=== PATIENT | male | born 1980 | race Caucasian/White ===

== ENCOUNTER 2018-10-28 14:27 | Outpatient (CLI) | payer MEDICAID ==
[~2018-10-28 14:27] MED LIST: CHLO25CA10 PO; METO-467 PO; PRED1TAB PO
== END 2018-10-28 23:59 | disposition home or self-care (01) ==
LOC: RAD 14:27
DX: R40.20 Unspecified coma (principal); F17.200 Nicotine dependence, unspecified, uncomplicated
CPT/HCPCS: 95819

== ENCOUNTER 2019-10-21 15:07 | Emergency (ER) | payer MEDICAID ==
[~2019-10-21] VITALS: Ht 175.3 cm; Wt 80.0 kg
[2019-10-21] MEDS ORDERED: LORazepam 2 mg/ml vial IV ONE (15:25)
[2019-10-21] MEDS ORDERED: normal saline 1000ML IV soln IVB ONE (15:25)
[2019-10-21 15:59] LABS: BASOPHILS # (AUTO) 0.1 X10'3 (0-0.2); BASOPHILS % (AUTO) 0.5 % (0-1); EOSINOPHILS # (AUTO) 0.1 X10'3 (0-0.9); EOSINOPHILS % (AUTO) 0.7 % (0-6); HEMATOCRIT 48.5 % (42.0-52.0); HEMOGLOBIN 16.7 g/dl (14.0-17.9); LYMPHOCYTES # (AUTO) 2.2 X10'3 (1.1-4.8); LYMPHOCYTES % (AUTO) 20.2 % (21-51); MEAN CORPUSCULAR HEMOGLOBIN 32.8 PG (27.0-31.0); MEAN CORPUSCULAR HGB CONC 34.5 g/dL (33.0-36.5); MEAN CORPUSCULAR VOLUME 95.1 FL (78-98); MONOCYTES # (AUTO) 0.9 X10'3 (0-0.9); MONOCYTES % (AUTO) 7.9 % (2-12); NEUTROPHILS # (AUTO) 7.7 X10'3 (1.8-7.7); NEUTROPHILS % (AUTO) 70.7 % (42-75); PLATELET COUNT 197 X10'3 (140-440); RED CELL DISTRIBUTION WIDTH 13.8 % (11.5-14.5); WHITE BLOOD COUNT 10.9 X10'3 (4.5-11.0)
[2019-10-21 16:06] LABS: PARTIAL THROMBOPLASTIN TIME 27 SECONDS (22-32)
[2019-10-21 16:07] LABS: ALANINE AMINOTRANSFERASE 61 U/L (12-78); ALBUMIN 3.7 G/DL (3.4-5.0); ALBUMIN/GLOBULIN RATIO 0.8 (1.1-1.5); ALKALINE PHOSPHATASE 99 IU/L (46-116); ANION GAP 12 (8-16); ASPARTATE AMINO TRANSFERASE 52 U/L (10-37); BILIRUBIN,TOTAL 0.6 MG/DL (0.1-1.0); BLOOD UREA NITROGEN 8 MG/DL (7-18); BUN/CREATININE RATIO 10.7 (5.4-32.0); CHLORIDE 106 MMOL/L (99-107); CREATININE 0.75 MG/DL (0.60-1.10); GLUCOSE 113 MG/DL (70-104); POTASSIUM 3.6 MMOL/L (3.5-5.1); SODIUM 142 MMOL/L (135-145); TOTAL CARBON DIOXIDE 24.3 MMOL/L (24-32); TOTAL PROTEIN 8.2 G/DL (6.4-8.2); eGFR > 90 ML/MIN
[2019-10-21 16:11] LABS: ETHANOL 0.177 GM/DL (0.0-0.010); TROPONIN I < 0.04 NG/ML (0.0-0.05)
[2019-10-21 16:31] LABS: COLOR,URINE YELLOW (Yellow); GLUCOSE, URINE NEGATIVE (Neg); KETONES,URINE NEGATIVE (Neg); LEUKOCYTE ESTERASE ,URINE NEGATIVE (Neg); NITRITES, URINE NEGATIVE (Neg); OCCULT BLOOD,URINE TRACE-LYSED (Neg); PH,URINE 5.5 (4.8-8.0); PROTEIN,URINE 30 mg/dl (Neg); UROBILINOGEN,URINE 0.2 E.U/dL (0.2-1.0)
[2019-10-21 16:33] LABS: URINE AMPHETAMINE SCREEN NEGATIVE (Neg); URINE BARBITUATE SCREEN NEGATIVE (Neg); URINE BENZODIAZEPINES SCREEN NEGATIVE (Neg); URINE CANNABINOID SCREEN NEGATIVE (Neg); URINE COCAINE SCREEN NEGATIVE (Neg); URINE METHADONE SCREEN NEGATIVE (Neg); URINE OPIATE SCREEN NEGATIVE (Neg); URINE PHENCYCLIDINE SCREEN NEGATIVE (Neg)
[2019-10-21 16:39] LABS: UA COLLECTION TYPE VOIDED
[2019-10-21 16:40] LABS: CLARITY,URINE CLEAR (Clear)
[2019-10-21 16:41] LABS: BACTERIA,URINE NONE SEEN /HPF (Neg); RBC,URINE NONE SEEN /HPF (0-2); SQUAMOUS EPITHELIAL CELL,UR FEW /LPF (FEW); WBC,URINE NONE SEEN /HPF (0-4)
[2019-10-21 17:56] VITALS: BP 127/79
== END 2019-10-21 18:05 | disposition home or self-care (01) ==
LOC: ER 15:07
DX: F10.129 Alcohol abuse with intoxication, unspecified (principal); I10 Essential (primary) hypertension; F12.90 Cannabis use, unspecified, uncomplicated; Z86.69 Personal history of other diseases of the nervous system and sense organs; Z88.0 Allergy status to penicillin; Z79.899 Other long term (current) drug therapy; Y90.0 Blood alcohol level of less than 20 mg/100 ml
CPT/HCPCS: 36415; 71045; 80053; 80305; 80320; 81001; 84484; 85025; 85610; 85730; 93005; 96374; 99285; J2060; J7030

== ENCOUNTER 2020-01-06 08:30 | Outpatient (CLI) | payer MEDICAID | END 2020-01-06 23:59 | disposition home or self-care (01) | LOC: RAD 08:30 | PROVIDERS: ATTEND Psychiatry & Neurology Neurology | DX: R94.01 Abnormal electroencephalogram [EEG] (principal); G40.802 Other epilepsy, not intractable, without status epilepticus; R09.89 Other specified symptoms and signs involving the circulatory and respiratory systems | CPT/HCPCS: 95816 ==

== ENCOUNTER 2022-04-25 10:05 | Emergency (ER) | payer MEDICAID ==
[~2022-04-25] VITALS: Ht 182.9 cm; Wt 90.9 kg
[2022-04-25 10:39] LABS: BASOPHILS # (AUTO) 0.1 X10'3 (0-0.2); BASOPHILS % (AUTO) 0.7 % (0-1); EOSINOPHILS # (AUTO) 0.1 X10'3 (0-0.9); EOSINOPHILS % (AUTO) 1.4 % (0-6); HEMATOCRIT 48.4 % (42.0-52.0); HEMOGLOBIN 16.6 g/dl (14.0-17.9); LYMPHOCYTES # (AUTO) 2.8 X10'3 (1.1-4.8); LYMPHOCYTES % (AUTO) 32.4 % (21-51); MEAN CORPUSCULAR HEMOGLOBIN 33.2 PG (27.0-31.0); MEAN CORPUSCULAR HGB CONC 34.3 g/dL (33.0-36.5); MEAN CORPUSCULAR VOLUME 96.7 FL (78-98); MEAN PLATELET VOLUME 10.6 FL (7.4-10.4); MONOCYTES # (AUTO) 0.9 X10'3 (0-0.9); MONOCYTES % (AUTO) 10.3 % (2-12); NEUTROPHILS # (AUTO) 4.7 X10'3 (1.8-7.7); NEUTROPHILS % (AUTO) 55.2 % (42-75); PLATELET COUNT 188 X10'3 (140-440); RED BLOOD COUNT 5.01 X10'6 (4.70-6.10); RED CELL DISTRIBUTION WIDTH 13.8 % (11.5-14.5); WHITE BLOOD COUNT 8.5 X10'3 (4.5-11.0)
[2022-04-25 11:03] LABS: ALANINE AMINOTRANSFERASE 47 U/L (12-78); ALBUMIN 3.7 G/DL (3.4-5.0); ALBUMIN/GLOBULIN RATIO 0.9 (1.1-1.5); ANION GAP 9 (8-16); ASPARTATE AMINO TRANSFERASE 36 U/L (10-37); BILIRUBIN,TOTAL 0.4 MG/DL (0.1-1.0); BLOOD UREA NITROGEN 11 MG/DL (7-18); CHLORIDE 104 MMOL/L (99-107); CREATININE 0.92 MG/DL (0.60-1.10); GLUCOSE 100 MG/DL (70-104); POTASSIUM 4.3 MMOL/L (3.5-5.1); SODIUM 140 MMOL/L (135-145); TOTAL CARBON DIOXIDE 26.7 MMOL/L (24-32); eGFR 89 ML/MIN
[2022-04-25 11:04] LABS: ALKALINE PHOSPHATASE 93 IU/L (46-116)
[2022-04-25 11:16] LABS: LARGE PLATELETS FEW; PLATELET ESTIMATE NORMAL
[2022-04-25] MEDS ORDERED: pantoprazole 40 MG vial IV ONE (15:50)
[2022-04-25] MEDS ORDERED: aspirin 81mg tab.chew PO ONE (15:50)
[2022-04-25] MEDS ORDERED: nitroGLYCERIN 0.4mg/hour patch TD ONE (15:50)
[2022-04-25] MEDS ORDERED: pantoprazole 40MG/NS 100ML BAG 100 ML IV ONE (15:55)
[2022-04-25 16:06] LABS: LIPASE 93 U/L (73-393)
[2022-04-25] MEDS ORDERED: LOSA1TAB15 PO (17:06)
[2022-04-25 17:22] VITALS: BP 165/104
== END 2022-04-25 17:27 | disposition home or self-care (01) ==
LOC: ER 10:05
DX: I10 Essential (primary) hypertension (principal); R07.9 Chest pain, unspecified; F17.200 Nicotine dependence, unspecified, uncomplicated; F12.10 Cannabis abuse, uncomplicated; Z88.0 Allergy status to penicillin; Z79.899 Other long term (current) drug therapy
CPT/HCPCS: 36415; 71045; 80053; 83690; 83880; 84484; 85008; 85025; 93005; 96374; 99285; C9113

== ENCOUNTER 2025-04-04 11:46 | Inpatient (IN) | payer MEDICAID ==
[2025-04-04] VITALS (10 sets, daily range): BP systolic 121–182; BP diastolic 76–120; PULSE 60–94; RESP 14–18; TEMP 97.3–98.8; O2SAT 98–99
[~2025-04-04] VITALS: Ht 182.9 cm; Wt 90.1 kg
[~2025-04-04 11:46] MED LIST changes: +LOSA-424 PO
--- NOTE | 2025-04-04 11:53 | ELECTROCARDIOGRAPH REPORT ---
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 Rashad Nicole Measurements Intervals [place] Rate: 86 P: 39 GA: 157 QRS: -16 QRSD: 90 T: 32 QT: 364 QTc: 436 Interpretive Statements Sinus rhythm Probable left atrial enlargement Borderline left axis deviation Lateral infarct, acute Electronically Signed On 04-04-2025 12:04:[address] Rashad Nicole Please click the below link to view image of tracing.
--- NOTE | 2025-04-04 11:57 | Physician Documentation ---
History of Present Illness ~ Stated Complaint: CP Time Seen by MD: 12:08 OK to notify your PCP?: Yes Primary Medical Doctor: [facility] Source: patient, RN/, RN notes reviewed, old records Mode of Arrival: POV Exam Limitations: no limitations HPI 45-year-old male presents with left sided chest pain which is radiating down his arm which started yesterday morning. Now the pain is localized in the sternum in his nontender to palpation. He did take 4 baby aspirin this morning. Any treated with ibuprofen yesterday with little relief. He does have a history of high blood pressure but has not had any cardiac events. Patient was brought into bed 12 I was immediately at the patient's bedside. Kit ojeda has a history of hypertension. He also has a history of questionable fainting four years ago questionable seizure activity was going to have a neuro workup and CAT scan but never followed up. He denies any headache or vision changes. Yesterday he was feeling weak and tired did not go to work but was having chest pain so he was resting. Today however he was going to move a refrigerator when he started to get up at 11:20 a.m. started having crushing chest pain with diaphoresis dizziness shortness of breath. who is a cardiac patient gave him over four aspirins. The patient then immediately comes to the ER where he is pale diaphoretic short of breath with 10/10 chest pain. Patient has no other complaints at this time. He appears ill Medication Reconciliation Allergies: Coded Allergies: Penicillins (Verified Allergy, Unknown, 04/04/25) Scheduled Chlordiazepoxide Hcl (Librium), 25 MG PO BID Losartan/Hydrochlorothiazide (Hyzaar 100-25 Tablet), 1 TAB PO DAILY Metoprolol Tartrate (Lopressor), 1 TAB PO Q12H Prednisone* (Prednisone*), 1 TAB PO DAILY Past Medical History Past Medical History: Seizures, Hypertension Past Surgical History: noncontributory Smoking Status: Current every day smoker Alcohol Use: Abuse Drug Use: marijuana Lives with: Spouse Lives In: Home Review of Systems All Other Systems at this time: Reviewed and Negative Physical Exam Vital Signs: RN Vital Signs have been reviewed: Yes Pulse Oximetry Reflects: adequate oxygenation Physical Exam General: Alert, no distress. HEENT: No injection, moist mucous membranes. Neck: Full range of motion. Respiratory: No respiratory distress, equal chest rise and fall. Chest: No accessory muscle use. Chest wall is nontender to palpation. Cardiovascular: Regular rate and rhythm. Gastrointestinal: Nondistended. Extremities: Normal range of motion, no deformity. Neurologic: Oriented x4. Psychiatric: Normal mood and affect. Skin: Normal color, warm and dry. General: The patient is well developed, well nourished, ill appearing and is in moderate acute distress. Skin: [place], warm and dry with no rashes. Diaphoretic pale-appearing HEENT: Head was normocephalic and atraumatic. Eyes - pupils equal, round, reactive to light and accommodation. Extraocular movements were intact. Conjunctivae were nonicteric. The mouth and oropharynx were clear with moist mucous membranes. There were no pharyngeal exudates or erythema. Neck: Supple and nontender. There was no jugular venous distention, lymphaden opathy, thyromegaly or masses. Chest: Clear to auscultation bilaterally without wheezes, rales or rhonchi. No accessory muscle use. No dullness to percussion. Heart: Rate regular and rhythmic. S1, S2. No murmurs. Palpation of the chest wall was normal. No rubs or thrills. Abdomen: Soft, nontender and nondistended. Positive bowel sounds. No guarding or rebound. No hepatosplenomegaly or palpable masses. Extremities: No cyanosis, clubbing or edema. The patient moves all extremities. Pulses were equal and symmetric. Neurologic: Motor sensory grossly intact. He reports V2 V3 facial numbness as well as left upper extremity numbness. Psychologic: The patient was oriented to person, place and time. The patient demonstrated appropriate judgement and insight. Progress Results/Orders Reviewed/noted all lab results: Yes Results/Orders Orders - BARRERA DIEZ MD Chest,Single View (04/04/25 11:51) Monitor (04/04/25 11:51) Saline Lock (04/04/25 11:51) Oxygen (04/04/25 11:51) Cbc/Diff (04/04/25 11:51) Electrocardiogram (04/04/25 11:51) Hs Troponin I W Calculations (04/04/25 13:51) Hs Troponin I W Calculations (04/04/25 14:51) Pt Inr (04/04/25 12:09) PTT (04/04/25 12:09) Nitroglycerin Sublingual Tab (Nitrostat (04/04/25 12:15) Normal Saline 1000ml (0.9% Sodium Chlori (04/04/25 12:15) Electrocardiogram (04/04/25 12:15) Heparin 25,000 Unit/250ml Bag (Heparin 2 (04/04/25 12:20) Heparin 10,000 Unit/Ml 1ml (Heparin 10,0 (04/04/25 12:30) Electrocardiogram (04/04/25 12:45) Hospitalist Icu Consultation (04/04/25 12:46) Fill Out Med Reconciliation (04/04/25 12:46) Completed Orders - BARRERA DIEZ MD Chest,Single View (04/04/25 11:51) BMP (04/04/25 11:51) PBNP (04/04/25 11:51) Electrocardiogram (04/04/25 11:51) Hs Troponin I W Calculations (04/04/25 11:51) Nitroglycerin 0.4mg/Hr Patch (Nitro-Dur (04/04/25 12:15) Nitroglycerin Sublingual Tab (Nitrostat (04/04/25 12:15) Electrocardiogram (04/04/25 12:15) Liver Panel (04/04/25 12:05) MG (04/04/25 12:05) Heparin 10,000 Unit/Ml 1ml (Heparin 10,0 (04/04/25 12:30) Message To Nursing (04/04/25 12:35) Morphine 4mg/Ml Inj. (Morphine Inj.) (04/04/25 12:35) Morphine 2mg/Ml Inj. (Morphine Inj.) (04/04/25 12:36) Ondansetron Inj. (Zofran 4mg/2ml Vial) (04/04/25 12:36) Ondansetron Inj. (Zofran 4mg/2ml Vial) (04/04/25 12:45) Lidocaine 1%/Pf 2ml (Xylocaine-Mpf 1% Vi (04/04/25 12:44) Verapamil Inj (Verapamil Inj) (04/04/25 12:44) Midazolam 1 Mg/Ml 2ml Inj. (Versed 1 Mg/ (04/04/25 12:45) Fentanyl/Pf (Fentanyl 0.05 Mg/Ml Syringe (04/04/25 12:45) Heparin 1,000unit/Ml 10ml Vial (Heparin (04/04/25 12:45) Iohexol 350mg/Ml 100ml (Omnipaque 350mg/ (04/04/25 12:45) Heparin 1,000 Units/Ns 500ml (Heparin 1, (04/04/25 12:45) Nitroglycerin 500mcg/5ml D5w (Nitroglyce (04/04/25 12:45) Morphine 4mg/Ml Inj. (Morphine Inj.) (04/04/25 12:51) Medications Received in ER Medications (Trade) Dose Ordered Sig/Naresh Route PRN Reason Start Time Stop Time Status Last Admin Dose Admin (Nitrostat SL tablet) 0.4 mg Q5M PRN SL chest pain 04/04/25 12:15 04/04/25 12:37 0.4 MG (Nitro-Dur 0.4mg/ hour Patch) 1 patch ONCE ONCE TD 04/04/25 12:15 04/04/25 12:16 DC 04/04/25 12:19 1 PATCH Sodium Chloride 1,000 ml @ 200 mls/hr Q5H ONCE IV 04/04/25 12:15 04/04/25 17:14 04/04/25 12:34 200 MLS/HR Heparin Sodium/ Dextrose 250 ml @ 10 mls/hr Q25H PRN IV TO MAINTAIN PTT WITHIN RANGE 04/04/25 12:20 04/04/25 12:40 10 MLS/HR (heparin 10,000 unit/ml 1ml inj) 4,000 units ONCE ONCE IV 04/04/25 12:30 04/04/25 12:31 DC 04/04/25 12:33 4,000 UNITS (morphine inj.) 4 mg ONCE ONCE IV 04/04/25 12:35 04/04/25 12:36 DC 04/04/25 12:38 4 MG (Zofran 4mg/2ml vial) 4 mg ONCE ONCE IV 04/04/25 12:45 04/04/25 12:46 DC 04/04/25 12:53 4 MG Vital Signs 04/04/25 04/04/25 04/04/25 04/04/25 11:53 12:01 12:15 12:38 Temp 97.9 Pulse 85 67 Resp 16 17 20 18 B/P (MAP) 228/148 232/139 (170) Pulse Ox 97 97 O2 Flow Rate 0 0 04/04/25 04/04/25 04/04/25 04/04/25 12:45 12:47 12:48 12:53 Pulse 68 Resp 20 18 B/P (MAP) 157/103 (121) 150/105 (120) 153/103 (120) Pulse Ox 68 O2 Flow Rate 0 Laboratory Tests Test 04/04/25 12:05 04/04/25 12:40 White Blood Count 12.2 H Red Blood Count 5.33 Hemoglobin 17.9 Hematocrit 51.9 Mean Corpuscular Volume 97.5 Mean Corpuscular Hemoglobin 33.6 H Mean Corpuscular Hemoglobin Concent 34.5 Red Cell Distribution Width 14.4 Platelet Count 202 Mean Platelet Volume 11.2 H Neutrophils (%) (Auto) 62.5 Lymphocytes (%) (Auto) 23.9 Monocytes (%) (Auto) 12.6 H Eosinophils (%) (Auto) 0.6 Basophils (%) (Auto) 0.4 Neutrophils # (Auto) 7.6 Lymphocytes # (Auto) 2.9 Monocytes # (Auto) 1.5 H Eosinophils # (Auto) 0.1 Basophils # (Auto) 0.0 CBC Comment Sodium Level 139 Potassium Level 4.0 Chloride Level 101 Carbon Dioxide Level 29.6 Anion Gap 8 Blood Urea Nitrogen 9 Creatinine 0.86 Estimated GFR/1.73 m2 > 90 BUN/Creatinine Ratio 10.5 Glucose Level 114 H Calcium Level 9.4 Magnesium Level 1.9 Total Bilirubin 1.2 H Direct Bilirubin 0.2 Aspartate Amino Transf (AST/SGOT) 84 H Alanine Aminotransferase (ALT/SGPT) 81 H Alkaline Phosphatase 109 Troponin I High Sensitivity 4202 *H Pro-B-Type Natriuretic Peptide 308 H Total Protein 8.5 H Albumin 4.0 Globulin 4.5 H Albumin/Globulin Ratio 0.9 L Chemistry Comments Coagulation Comments Re-Evaluation Re-Evaluation : Re-Evaluation: Unchanged Progress This patient upon arrival look ill. He had clear ischemic changes on his EKG consistent with acute myocardial infarction. Patient already received aspirin. He was given sublingual and nitro paste. Repeat EKGs were obtained and the 2nd one showed worsening ischemic changes consistent with an ST-elevation myocardial infarction despite saying his pain improved he was now diaphoretic and looking even more ill. Cardiology was consulted. Heparin bolus and heparin drip were both started. Patient received morphine 4 mg also started receiving fluids. Later his oxygenation dropped to 92% and was started on oxygen he was pretreated with fluids for cardiac catheterization. Patient's blood pressure was improving and he was no longer with a hypertensive emergency and an organ disease specifically myocardial infarction. His initial laboratory work CBC shows no anemia with slight elevation of WBC at 12.2 most likely a stress reaction without a left shift. Coagulation is pending and obtained. Chemistries were within normal limits. Magnesium 1.9 potassium 4.0 creatinine is 0.086. LFTs showed a slight bump with AST at 84 ALT at 81. Patient does have a history of drinking although he says only on occasion. First troponin came back at 4202. Patient was given a heparin bolus heparin drip. I discussed the case with Cardiology. Morphine was given. 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 Chest x-ray also showed no widened mediastinum or dissection. Initial orders were written for possible neuro evaluation and workup as well however it was unlikely and the risk of cardiac arrest and a CAT scan working up a diagnosis done four years ago was not worth further evaluation there was no carotid bruits unlikely to have a carotid dissection causing both neuro symptoms as well as cardiac symptoms. Patient is presenting blood pressure was 228/148 second blood pressure was 232/139 with a map of 170. Continuous bus monitor interpretation shows normal sinus rhythm heart rate 70s, no ectopy, normal, my interpretation. Pulse oximetry monitor interpretation shows normal oxygenation 97% room air, normal, my interpretation. 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 Barrera Diez Measurements Intervals [place] Rate: 74 P: -2 OR: 147 QRS: -16 QRSD: 93 T: 37 QT: 388 QTc: 431 Interpretive Statements STEMI Borderline left axis deviation Lateral infarct, acute Borderline ST elevation, anterior leads Baseline wander in lead(s) V3,V4,V5,V6 Electronically Signed On 04-04-2025 12:44:[address] Barrera Diez Please click the below link to view image of tracing. 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 Barrera Diez Measurements Intervals [place] Rate: 86 P: 39 OR: 157 QRS: -16 QRSD: 90 T: 32 QT: 364 QTc: 436 Interpretive Statements Sinus rhythm Probable left atrial enlargement Borderline left axis deviation Lateral infarct, acute Electronically Signed On 04-04-2025 12:04:[address] Barrera Diez Please click the below link to view image of tracing. Chest X-Ray : Interpreted By: self Views: 1 VIEW Lungs: normal Mediastinum: normal Ribs/Bones: normal Abdomen: normal Impression: no acute disease Heart Score: Heart Score Response (Comments) Value History Highly Suspicious [address]-Deviation 2 Age 45-64 1 Risk Factors 1 or 2 risk factors 1 Troponin >3 x's Normal limit 2 Total 8 Medical Decision Making Differential Dx:Considerations: Include: angina, aortic dissection, chest wall pain, cholelithiasis, CHF, costochondritis, esophageal reflux/spasm, gastritis, herpes zoster, myocardial infarction, pericarditis, pleuritis, pancreatitis, pneumonia, pneumothorax, pulmonary embolus, other Departure Admitted to Inpatient Unit: to hospitalist, to plastic duplicator Admission Level of Care: Critcal Care Impression: Primary Impression: STEMI (ST elevation myocardial infarction) Qualified Codes: I21.02 - ST elevation (STEMI) myocardial infarction involving left anterior descending coronary artery Additional Impression: Hypertension Qualified Codes: I10 - Essential (primary) hypertension Condition: Critical Referrals: NO PRIMARY CARE PROVIDER (PCP) Education Educated: Patient Educated regarding: diagnosis Critical Care Note Total Time (mins): 45 Critical Care Note The very real possibility of a deterioration of this patient's condition required the highest level of my preparedness for sudden, emergent intervention. I provided critical care services, which included medication orders, frequent reevaluations of the patient's condition and response to treatment, ordering and reviewing test results, and discussing the case with various consultants. Excludes time spent performing separately billable procedures. The critical care time associated with the care of the patient was. 45 minutes Additional Comment Medical Screen Exam This patient recieved a medical screening examination. After reviewing the individual's medical complaints with presenting symptoms and performing an appropriate physical examination, it was determined that no immediate life- threatening emergency medical condition is present. This individual is also not a women having contractions. Signature Scribe Signature: . Attestation: The note accurately reflects work and decisions made by me.Barrera Diez MD 04/04/25 12:57 MARY BETH HUERTAP Apr 04, 2025 11:57 BARRERA DIEZ MD Apr 04, 2025 12:55
[2025-04-04] MEDS ORDERED: heparin 10,000 units/1 ML INJ IV ONE (12:20)
[2025-04-04 12:22] LABS: MEAN PLATELET VOLUME 11.2 FL (7.4-10.4); RED CELL DISTRIBUTION WIDTH 14.4 % (11.5-14.5)
--- NOTE | 2025-04-04 12:26 | ELECTROCARDIOGRAPH REPORT ---
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 Rashad Nicole Measurements Intervals [place] Rate: 74 P: -2 [place]: 147 QRS: -16 QRSD: 93 T: 37 QT: 388 QTc: 431 Interpretive Statements STEMI Borderline left axis deviation Lateral infarct, acute Borderline ST elevation, anterior leads Baseline wander in lead(s) V3,V4,V5,V6 Electronically Signed On 04-04-2025 12:44:[address] Rashad Nicole Please click the below link to view image of tracing.
[2025-04-04] MEDS ORDERED: heparin 10,000 units/1 ML INJ IV PRN (12:30)
[2025-04-04 12:32] LABS: CREATININE 0.86 MG/DL (0.60-1.10); TOTAL CARBON DIOXIDE 29.6 MMOL/L (24-32); eCRCL 117 ML/MIN; eGFR > 90 ML/MIN
[2025-04-04] MEDS: heparin 10,000 units/1 ML INJ IV ONE (12:33)
[2025-04-04] MEDS: normal saline 1000ml 1,000 ML IV ONE (12:34)
[2025-04-04] MEDS: MESSAGE TO NURSING IV ONE (12:35)
[2025-04-04 12:38] LABS: PRO BRAIN NATRIURETIC PEPTIDE 308 PG/ML (0-125)
[2025-04-04] MEDS: morphine 4 MG/ML inj SYRINge IV ONE (12:38)
[2025-04-04] MEDS: heparin 25,000 UNIT/250ml bag 250 ML IV PRN (12:40)
[2025-04-04] MEDS ORDERED: verapamil 2.5 mg/ml inj IV ONE (12:44)
[2025-04-04] MEDS ORDERED: LIDOcaine 1% (10mg/ml) 2ml vial ONE (12:44)
[2025-04-04] MEDS ORDERED: heparin 1,000unit/ml 10ml vial 10 ML ONE (12:45)
[2025-04-04] MEDS ORDERED: midazolam 1 mg/ML 2ml injection ONE (12:45)
[2025-04-04] MEDS ORDERED: nitroGLYCERIN 500mcg/5mL D5W 5 ML IV ONE (12:45)
[2025-04-04] MEDS ORDERED: fentaNYL/PF 50MCG/1 ML 2ML syringe ONE (12:45)
[2025-04-04] MEDS: ondansetron/PF 4mg/2ml inj IV ONE (12:53)
[2025-04-04] MEDS: ondansetron/PF 4mg/2ml inj ONE (12:53)
[2025-04-04] MEDS: morphine 4 MG/ML inj SYRINge ONE (12:54)
[2025-04-04 13:02] LABS: APTT 25 SECONDS (22-32); INR 1.0 INR
--- NOTE | 2025-04-04 13:05 | RADIOLOGY REPORT ---
DI CHEST,SINGLE VIEW, HISTORY: CP COMPARISON: CHEST,SINGLE VIEW on DOS: 04/25/22 CHEST,SINGLE VIEW on DOS: 04/25/22 TECHNICAL DATA: 1 view of the chest was obtained. FINDINGS: Lines and tubes: None Cardiomediastinal silhouette: normal Pulmonary vasculature: normal Lung expansion: normal Lung airspace: normal Lung interstitium: normal Pleura: normal Pneumothorax: no Bones: Unremarkable Other: no IMPRESSION: No acute intrathoracic abnormality.
--- NOTE | 2025-04-04 13:37 | CARDIAC CATH REPORT ---
Cardiac Cath Report Providers to CC CC: ROSHAN RAPP MD Procedure Comments: 1. Left Heart Catheterization 2. Selective Coronary Angiography 3. Percutaneous Coronary Intervention of the First Diagonal Artery x 1 4. Right Radial Artery Access Brief History/Indications: 45yo man with HTN, HLD, Tobacco use, EtOH abuse admitted with CP x 1 day, found to have lateral STEMI Techniques: After informed consent was obtained, the patient was brought to the cardiac catheterization laboratory and prepped and draped in usual sterile fashion for left heart catheterization and other procedures mentioned above. The right wrist was anesthetized with 1% Lidocaine and the right radial artery accessed via the Seldinger technique after which a 6Fr sheath was placed. Through this a JR4 was used to engage the left ventricle, the right coronary artery, and an XB C4 guide to engage the left coronary artery. See below for interventional procedure details. At the conclusion of the case the sheath was removed and hemostasis obtained with a VascBand. Findings Findings: HEMODYNAMICS: LV: 156/7 mmHg LVEDP: 16 mmHg Ao: 156/89, MAP 116 mmHg CORONARY ARTERIES: Rt Dominant LMCA: Luminal Irregularities LAD: Luminal Irregularities D1: 100% occluded after the ostium D2: Luminal Irregularities LCx: Luminal Irregularities OM1: Luminal Irregularities RCA: Luminal Irregularities PDA: Luminal Irregularities PL: Luminal Irregularities PERCUTANEOUS CORONARY INTERVENTION of the D1: An XBC4 guide was used to engage the left coronary artery. The Diag lesion was crossed with a Choice PT wire. Pre-dilatation was performed with a 2.0x12mm balloon. Repeat angiography revealed adequate pre-treatment of the lesion without evidence of dissection. Subsequently, a 2.5x18mm Harrah Arminto KORIN was deployed across the lesion. The lesion was then post-dilated with a 3.0x12mm NC balloon. Repeat angiography revealed adequate stent expansion without evidence of dissection. Results Results: 1. STEMI involving the proximal D1 branch 2. PCI of the D1 with 2.5x15mm Matias KORIN 3. RRA Access, closed with VascBand RECOMMENDATIONS: 1. Cont ASA 81mg QD indefinitely 2. Cont Brilinta 90mg BID x 12 months 3. Recommend uptitration of other max-tolerated GDMT LOKI RAPP MD Apr 04, 2025 13:37
[2025-04-04 13:53] LABS: PLATELET ESTIMATE NORMAL
[2025-04-04 13:54] LABS: LARGE PLATELETS MODERATE
--- NOTE | 2025-04-04 14:59 | ELECTROCARDIOGRAPH REPORT ---
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 Rashad Nicole Measurements Intervals [place] Rate: 66 P: -18 [place]: 153 QRS: -31 QRSD: 85 T: 7 QT: 406 QTc: 426 Interpretive Statements Sinus rhythm Consider left atrial enlargement Left axis deviation Lateral infarct, acute Electronically Signed On 04-06-2025 12:42:[address] Rashad Nicole Please click the below link to view image of tracing.
[2025-04-04] MEDS ORDERED: AMLO-708 PO (15:27)
[2025-04-04] MEDS ORDERED: ATOR10TA70 PO (15:27)
[2025-04-04] MEDS: hydrALAZINE 20mg/ml inj. IV STA (18:30)
[2025-04-05] VITALS (8 sets, daily range): BP systolic 103–144; BP diastolic 62–84; PULSE 56–83; RESP 14–22; TEMP 97.2–98.4; O2SAT 62–99
--- NOTE | 2025-04-05 07:35 | HISTORY AND PHYSICAL ---
History & Physical - Short Providers to CC CC: ROSHAN RAPP MD ~ History of Present Illness Chief Complain & History STEMI 45yo man with HTN, HLD, Tobacco abuse admitted with CP x 1 day, found to have lateral STEMI. Allergies: Coded Allergies: Penicillins (Verified Allergy, Unknown, 04/04/25) Home Medications Home Medications Active Hyzaar 100-25 Tablet (Losartan/Hydrochlorothiazide) 1 Each Tablet 1 Tab PO DAILY 30 Days Lopressor (Metoprolol Tartrate) 50 Mg Tablet 1 Tab PO Q12H 30 Days Reported Amlodipine Besylate 10 Mg Tablet 1 Tab PO DAILY Atorvastatin Calcium 10 Mg Tablet 1 Tab PO DAILY Past Medical History Past Medical History HTN HLD Tobacco use Past Surgical History Past Surgical History Denies Family History Patient History: Cardiac arrest FATHER ROS ROS 14point ROS neg except above Exam Last recorded Lab results: 04/04/25 1205 04/04/25 1205 Vitals: Vital Signs Date Time Temp Pulse Resp B/P (MAP) Pulse Ox O2 Delivery O2 Flow Rate FiO2 04/05/25 06:00 97.7 59 14 103/62 (76) 99 Room Air 04/04/25 18:00 0.0 Other: GENERAL: Awake, alert, ++Diaphoretic CV: Reg rhythm, normal rate. No murmurs LUNGS: CTAB GI: +BS, soft, non-tender/distended. EXT: 2+ radial pulses, no edema PSYCH: cooperative Diagnostic Data Diagnostic Data: Laboratory Tests Test 04/04/25 12:40 04/04/25 13:14 Prothrombin Time 10.7 SECONDS (9.0-12.0) INR International Normalized Ratio 1.0 INR Activated Partial Thromboplast Time 25 SECONDS (22-32) Coagulation Comments Activated Clotting Time 239 SEC (101-148) H Counseling Services Smoking & Tobacco Cessation: 3-10 Minutes Advance Care Planning Advanced Care plannin - 30 Minutes Problem\Assessment\Plan Problems: (1) STEMI (ST elevation myocardial infarction) Status: Acute Assessment & Plan: STEMI involving the proximal D1 branch s/p PCI of the D1 with 2.5x15mm Matias KORIN --Cont ASA 81mg QD indefinitely --Cont Brilinta 90mg BID x 12 months --Cont Atorva 80mg QHS --Cont Metop 25mg BID --Echo to evaluate LVEF (2) Hypertension Status: Acute Assessment & Plan: Improved. --BBx as above --Cont Amlodipine 10mg QD Additional Plan DOS for HnP: 04/04/2025 Problem Qualifiers (1) STEMI (ST elevation myocardial infarction): Involved coronary artery: LAD coronary artery Qualified Codes: I21.02 - ST elevation (STEMI) myocardial infarction involving left anterior descending coronary artery (2) Hypertension: Hypertension type: unspecified Qualified Codes: I10 - Essential (primary) hypertension LOKI RAPP MD Apr 05, 2025 07:35
--- NOTE | 2025-04-05 07:37 | PROGRESS NOTE ---
Progress Note Cardiology Providers to CC CC: ROSHAN RAPP MD ~ Subjective Subjective 45yo man with HTN, HLD, Tobacco use, CAD(s/p PCI Dx) admitted with lateral STEMI s/p PCI D1. In the interim, reports feeling better overall. States CP resolved. Denies any SOB, bleeding. Objective Result Diagram: 04/04/25 1205 04/04/25 1205 Objective GENERAL:Awake, alert, NAD CV: Reg rhythm, normal rate. No murmurs LUNGS: CTAB GI: +BS, soft, non-tender/distended EXT: 2+ radial pulses, no edema PSYCH: cooperative Coagulation Studies Laboratory Tests Test 04/04/25 12:40 04/04/25 13:14 Prothrombin Time 10.7 SECONDS (9.0-12.0) INR International Normalized Ratio 1.0 INR Activated Partial Thromboplast Time 25 SECONDS (22-32) Coagulation Comments Activated Clotting Time 239 SEC (101-148) H Problem\Assessment\Plan Problems/Diagnosis: (1) STEMI (ST elevation myocardial infarction) Assessment & Plan: STEMI involving the proximal D1 branch s/p PCI of the D1 with 2.5x15mm [place] KORIN --Cont ASA 81mg QD indefinitely --Cont Brilinta 90mg BID x 12 months --Cont Atorva 80mg QHS --Cont Metop 25mg BID --Echo to evaluate LVEF --Check lipids, Lp(a) (2) Hypertension Assessment & Plan: Improved. --BBx as above --Cont Amlodipine 10mg QD Problem Qualifiers (1) STEMI (ST elevation myocardial infarction): Qualified Codes: I21.02 - ST elevation (STEMI) myocardial infarction involving left anterior descending coronary artery (2) Hypertension: Qualified Codes: I10 - Essential (primary) hypertension LOKI RAPP MD Apr 05, 2025 07:37
[2025-04-05] MEDS: aspirin 81mg, enteric-coated 1 TAB TABLET.DR PO SCH (07:56)
[2025-04-05 07:59] LABS: MEAN PLATELET VOLUME 10.9 FL (7.4-10.4); RED CELL DISTRIBUTION WIDTH 14.1 % (11.5-14.5)
[2025-04-05 08:13] LABS: CHOL/HDL RATIO 4.5 (0.00-4.99); CREATININE 0.80 MG/DL (0.60-1.10); LDL CHOLESTEROL 114 MG/DL (50-100); TOTAL CARBON DIOXIDE 25.1 MMOL/L (24-32); eCRCL 125 ML/MIN; eGFR > 90 ML/MIN
--- NOTE | 2025-04-05 18:40 | CARDIOLOGY REPORT ---
APPROVED REPORT EXAM: Comprehensive 2D, Doppler, and color-flow Echocardiogram. Patient Location: 30[address] Blood Pressure: 119/78 mmHg Heart Rate: 58 bpm Rhythm: SINUS Indications STEMI HYPERTENSION S/P STENT X1 Refractory Mixer: Cesario Sprague MD Previous echo: none 2D Dimensions RVDd 3.6 cm LA Diam5.5 cm IVSd 1.2 (0.7-1.1cm) LVDd 4.5 cm PWd 1.2 (0.7-1.1cm) IVSs 1.5 (0.8-1.2cm) LVDs 2.8 (2.5-4.0cm) PWs 1.8 (0.8-1.2cm) LVOT Diameter 2.29 (1.8-2.4cm) LVEF(%) 67.8 (>50%) Ao Asc Diam.3.12 cmFS (%) 37.6 % SV 63.2 ml CO 3.8 L/min M-Mode Dimensions Left Atrium(MM) 3.54 (2.5-4.0cm) Aortic Root 3.09 (2.2-3.7cm) Aortic Cusp Exc 2.10 (1.5-2.0cm) MV EPSS 0.5 (<0.5cm) Biplane 2D LA Volumes LA ESV Index 25.38 mL/m2 Aortic Valve AoV Peak Ramirez. 166.7 cm/s AoV VTI 33.7 cm AO Peak GR. 11.1 mmHg AO Mean GR. 6 mmHg LVOT VTI 26.58 cm LVOT Peak Ramirez. 125.6 cm/s NNAMDI(VTI)/BSA 3.26 cm2/m2 NNAMDI (VTI) 3.26 cm2 Mitral Valve MV E Velocity 74.8 cm/s MV Peak Gr. 2 mmHg MV DECEL TIME 236 ms MV A Velocity 69.8 cm/s MV PHT 68 ms E/A Ratio 1.1 MVA (PHT) 3.24 cm2 MV VMax77.9 cm/s TDI Medial E' P. V 8.33 cm/s E/Medial E' 9.0 Pulmonary Vein S1 Velocity 54.6 cm/s D2 Velocity 37.4 cm/s PVa Jcaldwxg69.7 cm/s PVa [id number] msec LEFT VENTRICLE Normal LV size and function. Mild concentric hypertrophy. Basal inferior wall appears hypokinetic to akinetic. LVEF is 65-70%. RIGHT VENTRICLE RV is mildly dilated in size with normal function. ATRIA LA size is normal. AORTIC VALVE Trileaflet AV appears normal without sclerosis or stenosis. No insufficiency. MITRAL VALVE Mild MV annular calcification without stenosis. Trace regurgitation. TRICUSPID VALVE TV appears structurally normal with trace regurgitation. PULMONIC VALVE Normal PV without stenosis, physiologic insufficiency. GREAT VESSELS Aortic root is normal in size. Ascending aorta is normal in size. PERICARDIUM Normal pericardium. No effusion. Other Information Study Quality: Adequate Conclusion Normal LV size and function. Mild concentric hypertrophy. Basal inferior wall appears hypokinetic to akinetic. LVEF is 65-70%. RV is mildly dilated in size with normal function. LA size is normal. Trileaflet AV appears normal without sclerosis or stenosis. No insufficiency. Mild MV annular calcification without stenosis. Trace regurgitation. TV appears structurally normal with trace regurgitation. Normal pericardium. No effusion.
[2025-04-06 02:00] VITALS: BP 124/70; PULSE 54; RESP 15; TEMP 97.8; O2SAT 98
[2025-04-06 06:00] VITALS: BP 121/70; PULSE 49; RESP 18; TEMP 97.8; O2SAT 100
[2025-04-06 06:29] LABS: MEAN PLATELET VOLUME 11.1 FL (7.4-10.4); RED CELL DISTRIBUTION WIDTH 14.2 % (11.5-14.5)
[2025-04-06 06:58] LABS: CREATININE 0.85 MG/DL (0.60-1.10); TOTAL CARBON DIOXIDE 23.0 MMOL/L (24-32); eCRCL 118 ML/MIN; eGFR > 90 ML/MIN
[2025-04-06 08:00] VITALS: BP 121/70; PULSE 69; RESP 14; RESP 18; O2SAT 99
[2025-04-06 11:00] VITALS: BP 133/84; PULSE 57; RESP 22; TEMP 98.2; O2SAT 100
[2025-04-06] MEDS ORDERED: TICA90TA PO (17:18)
[2025-04-06] MEDS ORDERED: ASPI-1071 PO (17:18)
[2025-04-06] MEDS ORDERED: ATOR20TA66 PO (17:18)
--- NOTE | 2025-04-06 17:28 | DISCHARGE SUMMARY ---
Discharge Summary Providers to CC CC: ROSHAN RAPP MD ~ Discharge Summary Admission Diagnosis: STEMI Hospital Course DATE OF ADMISSION: 04/04/2025 DATE OF DISCHARGE: 04/06/2025 Discharge Diagnosis\Comment: ST Elevation Myocardial Infarction Operations\Procedures: 1. Left Heart Catheterization 2. Selective Coronary Angiography 3. Percutaneous Coronary Intervention of the First Diagonal Artery x 1 4. Right Radial Artery Access Consultants: None Complications: None Condition on DC: Stable New Medications: Aspirin (Ecotrin*) 81 Mg Tablet.dr 1 TAB PO DAILY for 90 Days, #90 TAB.SR 3 Refills Atorvastatin Calcium (Atorvastatin Calcium) 20 Mg Tablet 80 MG PO HS for 90 Days, #90 TAB Ticagrelor (Brilinta) 90 Mg Tablet 90 MG PO BID for 90 Days, #90 TAB 4 Refills Continued Medications: Amlodipine Besylate (Amlodipine Besylate) 10 Mg Tablet 1 TAB PO DAILY Metoprolol Tartrate (Lopressor) 50 Mg Tablet 1 TAB PO Q12H for 30 Days, #60 TAB Discontinued Medications: Atorvastatin Calcium (Atorvastatin Calcium) 10 Mg Tablet 1 TAB PO DAILY Losartan/Hydrochlorothiazide (Hyzaar 100-25 Tablet) 1 Each Tablet 1 TAB PO DAILY for 30 Days, #30 TAB Discharge Summary: 45yo man with HTN, HLD, Tobacco use, CAD(s/p PCI Dx) admitted with lateral STEMI s/p PCI D1. Did well x 48hrs without issues. TTE with preserved LVEF. --ASA 81mg QD indefinitely --Brilinta 90mg BID x 12 months --Cont Metop --Cont Atorva *Problems/Diagnosis: (1) STEMI (ST elevation myocardial infarction) Status: Acute Assessment & Plan: STEMI involving the proximal D1 branch s/p PCI of the D1 with 2.5x15mm Matias KORIN. TTE with preserved LVEF. --Cont ASA 81mg QD indefinitely --Cont Brilinta 90mg BID x 12 months --Cont Atorva 80mg QHS --Cont Metop 25mg BID (2) Hypertension Status: Acute Total Time Spent on D/C: Up to 30 Minutes Counseling Services Smoking & Tobacco Cessation: 3-10 Minutes Problem Qualifiers (1) STEMI (ST elevation myocardial infarction): Qualified Codes: I21.02 - ST elevation (STEMI) myocardial infarction involving left anterior descending coronary artery (2) Hypertension: Qualified Codes: I10 - Essential (primary) hypertension LOKI RAPP MD Apr 06, 2025 17:28
== END 2025-04-06 17:38 | disposition home or self-care (01) | DRG 174 ==
LOC: ER 11:46 → PCU 3S 15:46
PROVIDERS: ADMIT Student in an Organized Health Care Education/Training Program; ATTEND Student in an Organized Health Care Education/Training Program
PROC: 027034Z Dilation of Coronary Artery, One Artery with Drug-eluting Intraluminal Device, Percutaneous Approach (ICD-10-PCS; principal; 2025-04-04)
PROC: 4A023N7 Measurement of Cardiac Sampling and Pressure, Left Heart, Percutaneous Approach (ICD-10-PCS; 2025-04-04)
PROC: B2111ZZ Fluoroscopy of Multiple Coronary Arteries using Low Osmolar Contrast (ICD-10-PCS; 2025-04-04)
DX: I21.02 ST elevation (STEMI) myocardial infarction involving left anterior descending coronary artery (principal); E78.5 Hyperlipidemia, unspecified; I25.10 Atherosclerotic heart disease of native coronary artery without angina pectoris; I10 Essential (primary) hypertension; Z72.0 Tobacco use; Z79.82 Long term (current) use of aspirin; Z88.0 Allergy status to penicillin; Z98.61 Coronary angioplasty status
CPT/HCPCS: 36415; 71045; 80048; 80053; 80061; 80076; 83695; 83735; 83880; 84484; 85008; 85025; 85347; 85610; 85730; 87081; 93005; 93306; 93458; 96365; 96375; 99152; 99153; 99291; A6258; C1725; C1751; C1769; C1874; C1894; C9606; G0378; J0360; J1644; J2003; J2250; J2270; J2405; J3010; J3490; J7030; Q9967